=== PATIENT | male | born 1970 | race Two or more races ===

== ENCOUNTER 2017-07-15 00:15 | Inpatient (IN) | payer MEDICAID ==
[2017-07-15] VITALS (9 sets, daily range): BP systolic 127–156; BP diastolic 77–106
[~2017-07-15] VITALS: Ht 167.6 cm; Wt 69.4 kg
--- NOTE | 2017-07-15 00:23 | Emergency Room Report ---
History of Present Illness General Chief Complaint: To Be Triaged Source: Patient Present Illness HPI [id number] walkin with chief complaint of auditory hallucinations over 2 months, worse last 8 days Believes someone is following him, watching him at work, poisoning is food Smokes marijuana - probably every day More aggressive towards his , daughter Doesnt know the year Denies known psych history, known diagnoses, medications 40-50lb weight loss over 2 months Not eating No other medical problems Allergies: Coded Allergies: No Known Allergies (Unverified , 07/15/17) Patient History Past Surgical History: none Pertinent Family History: none Social History: Reports: smoking, drug use, Denies: alcohol use Immunizations: UTD Reviewed Nursing Documentation: PMH: Agreed, PSxH: Agreed Review of Systems All Other Systems: negative except mentioned in HPI Physical Exam Sp02 EP Interpretation: reviewed, normal General Appearance: normal inspection, well appearing, no apparent distress, alert, GCS 15, non-toxic Head: normocephalic, atraumatic Eyes: bilateral eye PERRL, bilateral eye EOMI ENT: normal ENT inspection, hearing grossly normal, normal voice Neck: normal inspection, full range of motion, supple, no bony tend Respiratory: normal inspection, lungs clear, normal breath sounds, no respiratory distress, no retraction, no wheezing Cardiovascular #1: regular rate, rhythm, no edema Gastrointestinal: normal inspection, normal bowel sounds, non tender, soft, no guarding, no hernia Genitourinary: no CVA tenderness Musculoskeletal: normal inspection, back normal, normal range of motion, Juanpablo' s Sign negative Neurologic: normal inspection, alert, oriented x3, responsive, 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 tested, motor strength/tone normal, speech normal Psychiatric: normal inspection, judgement/insight normal, mood/affect normal Skin: normal inspection, normal color, no rash Medical Decision Making Diagnostic Impression: Primary Impression: Altered mental status Qualified Codes: R41.82 - Altered mental status, unspecified Additional Impressions: Failure to thrive Qualified Codes: R62.7 - Adult failure to thrive Weight loss, unintentional Methamphetamine abuse Polysubstance abuse Behavior change due to substance use ER Course Labs unremarkable Utox + for meth, MJ Likely contributing to AMS and aggressive and paranoid behavior at home Also possibly contributing to decreased appetite weight loss Cannot rule out underlying psych condition however Endorsed to Dr Gonzalez for Dr Jesus at 250am for med/surg admission EKG Diagnostic Results Rate: normal Rhythm: NSR ST Segments: no acute changes ASA given to the pt in ED: No Rhythm Strip Diag. Results EP Interpretation: yes Rate: 75 Rhythm: NSR, no PVC's, no ectopy Chest X-Ray Diagnostic Results Chest X-Ray Diagnostic Results : Chest X-Ray Ordered: Yes # of Views/Limited/Complete: 1 View Indication: Other - AMS EP Interpretation: Yes Interpretation: no consolidation, no effusion, no pneumothorax, no acute cardiopulmonary disease Impression: No acute disease Electronically Signed by: Dr Evangelina Eisenberg MD Status: improved Disposition: ADMITTED INPATIENT Condition: Stable Scripts No Active Prescriptions or Reported EVANGELINA Callejas M.D. Jul 15, 2017 00:23
[2017-07-15] MEDS ORDERED: LORazepam Inj 2mg/ml 1ml IV ONE (00:45)
[2017-07-15] MEDS ORDERED: Tubing IV Cassette IV ONE (00:58)
[2017-07-15 01:02] LABS: BASOPHILS % (AUTO) 1.3 % (0.0-2.0); EOSINOPHILS % (AUTO) 1.8 % (0.0-3.0); LYMPHOCYTES % (AUTO) 25.8 % (20.0-45.0); MEAN CORPUSCULAR HEMOGLOBIN 34.1 PG (27.0-31.0); MEAN CORPUSCULAR HGB CONC 35.4 G/DL (32.0-36.0); MEAN CORPUSCULAR VOLUME 96 FL (80-99); MEAN PLATELET VOLUME 6.3 FL (6.5-10.1); MONOCYTES % (AUTO) 7.1 % (1.0-10.0); PLATELET COUNT 327 K/UL (150-450); RED BLOOD COUNT 4.86 M/UL (4.70-6.10); RED CELL DISTRIBUTION WIDTH 12.6 % (11.6-14.8); WHITE BLOOD COUNT 8.9 K/UL (4.8-10.8)
[2017-07-15 01:33] LABS: ALANINE AMINOTRANSFERASE 42 U/L (12-78); ANION GAP 12 mmol/L (5-15); ASPARTATE AMINO TRANSFERASE 25 U/L (15-37); CALCIUM 9.5 MG/DL (8.5-10.1); CARBON DIOXIDE 26 MMOL/L (21-32); CHLORIDE 102 MMOL/L (98-107); CREATININE 0.9 MG/DL (0.55-1.30); GLOMERULAR FILTRATION RATE > 60 mL/min (>60); POTASSIUM 3.7 MMOL/L (3.5-5.1); SODIUM 140 MMOL/L (136-145); TOTAL PROTEIN 7.6 G/DL (6.4-8.2)
[2017-07-15 01:34] LABS: ACETAMINOPHEN 4 MCG/ML (10-30); ALCOHOL < 3 mg/dL; THYROID STIMULATING HORMONE 1.575 uiU/mL (0.360-3.740)
[2017-07-15] MEDS ORDERED: Zolpidem 5mg tab ORAL PRN (03:15)
[2017-07-15] MEDS ORDERED: Mylanta II UD 30ml ORAL PRN (03:15)
[2017-07-15] MEDS ORDERED: Miralax 17gm pkt ORAL PRN (03:15)
[2017-07-15] MEDS ORDERED: Flu Vaccine Quadrivalent 0.5ml IM ONE (09:00)
[2017-07-15] MEDS: Docusate 100mg cap ORAL SCH ×2 (09:43→21:00)
[2017-07-15] MEDS: Heparin 5000 units/ml inj SUBQ SCH ×2 (09:45→21:00)
--- NOTE | 2017-07-15 12:13 | Diagnostic Imaging Report ---
Indication: Dyspnea Comparison: None A single view chest radiograph was obtained. Findings: Cardiomediastinal appearance is within normal limits for age. Pulmonary vascularity is appropriate. The diaphragmatic contour is smooth and costophrenic angles are sharp. No pleural effusions are identified. The bones are unremarkable. Impression: No acute findings
--- NOTE | 2017-07-15 15:23 | History and Physical ---
History of Present Illness General Date patient seen: Jul 15, 2017 Reason for Hospitalization: Behavioral Complaint Present Illness HPI 46 y/o male with no significant past medical history presents for auditory hallucinations for 2 months, which has worsened over the last 1 weeks. Patient states that he believes he is constantly being watched recently has been hearing voices. He believes that he developed a gift and that he can people talk about him even if they're miles away. Patient also states that he has been smoking marijuana since he was 15 years old and started abusing methamphetamines for the last 6 months. Per daughter, patient has been more aggressive towards . Patient also states that he has not been eating because he believes that someone has been poisoning his food. He reports a 40- 50 pound weight loss over the last 2 months since he's been having auditory hallucinations. Denies cp, sob, n/v, headaches. Denies any prior history of psychiatric illnesses. Denies SI/HI. Allergies: Coded Allergies: No Known Allergies (Unverified , 07/15/17) Medication History No Active Prescriptions or Reported Meds Patient History Limited by: language barrier History Provided By: Patient, Family Member Healthcare decision maker Resuscitation status Full Code Advanced Directive on File Review of Systems Constitutional: Reports: no symptoms Eye: Reports: no symptoms ENT: Reports: no symptoms Respiratory: Reports: no symptoms Cardiovascular: Reports: no symptoms Gastrointestinal: Reports: no symptoms Genitourinary: Reports: no symptoms Musculoskeletal: Reports: no symptoms Skin: Reports: no symptoms Psychiatric: Reports: see HPI - no SI/HI Neurological: Reports: no symptoms Endocrine: Reports: no symptoms Hematologic/Lymphatic: Reports: no symptoms Physical Exam General Appearance: no apparent distress, alert, other - paranoid affect HEENT: normocephalic, atraumatic Neck: non-tender, normal alignment, supple Respiratory/Chest: chest wall non-tender, lungs clear, normal breath sounds Cardiovascular/Chest: normal peripheral pulses, normal rate, regular rhythm Abdomen: normal bowel sounds, non tender, soft Extremities: normal range of motion, non-tender Skin Exam: normal pigmentation, warm/dry 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, no motor/sensory deficits, alert, oriented x 3 Last 24 Hour Vital Signs Date Time Temp Pulse Resp B/P (MAP) Pulse Ox O2 Delivery O2 Flow Rate FiO2 07/15/17 12:00 97.9 81 20 156/99 100 Room Air 07/15/17 08:00 98.2 86 20 147/106 100 Room Air 07/15/17 04:22 97.9 83 20 127/86 100 Room Air 07/15/17 03:18 98.8 79 15 136/92 98 Room Air 07/15/17 03:13 79 15 136/92 98 Room Air 07/15/17 01:52 98.8 81 18 130/79 97 Room Air 07/15/17 00:25 98.8 97 18 136/90 98 Room Air 07/15/17 00:20 98.8 97 18 136/90 98 Intake and Output 07/15/17 07/16/17 19:00 07:00 Intake Total 525 ml Balance 525 ml Intake IV Total 525 ml Laboratory Tests Test 07/15/17 00:55 07/15/17 01:30 White Blood Count 8.9 K/UL (4.8-10.8) Red Blood Count 4.86 M/UL (4.70-6.10) Hemoglobin 16.6 G/DL (14.2-18.0) Hematocrit 46.7 % (42.0-52.0) Mean Corpuscular Volume 96 FL (80-99) Mean Corpuscular Hemoglobin 34.1 PG (27.0-31.0) H Mean Corpuscular Hemoglobin Concent 35.4 G/DL (32.0-36.0) Red Cell Distribution Width 12.6 % (11.6-14.8) Platelet Count 327 K/UL (150-450) Mean Platelet Volume 6.3 FL (6.5-10.1) L Neutrophils (%) (Auto) 64.0 % (45.0-75.0) Lymphocytes (%) (Auto) 25.8 % (20.0-45.0) Monocytes (%) (Auto) 7.1 % (1.0-10.0) Eosinophils (%) (Auto) 1.8 % (0.0-3.0) Basophils (%) (Auto) 1.3 % (0.0-2.0) Sodium Level 140 MMOL/L (136-145) Potassium Level 3.7 MMOL/L (3.5-5.1) Chloride Level 102 MMOL/L (98-107) Carbon Dioxide Level 26 MMOL/L (21-32) Anion Gap 12 mmol/L (5-15) Blood Urea Nitrogen 19 mg/dL (7-18) H Creatinine 0.9 MG/DL (0.55-1.30) Estimat Glomerular Filtration Rate > 60 mL/min (>60) Glucose Level 137 MG/DL (74-106) H Calcium Level 9.5 MG/DL (8.5-10.1) Total Bilirubin 0.3 MG/DL (0.2-1.0) Aspartate Amino Transf (AST/SGOT) 25 U/L (15-37) Alanine Aminotransferase (ALT/SGPT) 42 U/L (12-78) Alkaline Phosphatase 103 U/L (46-116) Troponin I 0.003 ng/mL (0.000-0.056) Total Protein 7.6 G/DL (6.4-8.2) Albumin 3.8 G/DL (3.4-5.0) Globulin 3.8 g/dL Albumin/Globulin Ratio 1.0 (1.0-2.7) Thyroid Stimulating Hormone (TSH) 1.575 uiU/mL (0.360-3.740) Salicylates Level 3.2 ug/mL (2.8-20) Acetaminophen Level 4 MCG/ML (10-30) L Serum Alcohol < 3 mg/dL Urine Opiates Screen Negative (NEGATIVE) Urine Barbiturates Screen Negative (NEGATIVE) Phencyclidine (PCP) Screen Negative (NEGATIVE) Urine Amphetamines Screen Positive (NEGATIVE) H Urine Benzodiazepines Screen Negative (NEGATIVE) Urine Cocaine Screen Negative (NEGATIVE) Urine Marijuana (THC) Screen Positive (NEGATIVE) H Height (Feet): 5 Height (Inches): 6.00 Weight (Pounds): 153 Medications Current Medications Medications (Trade) Dose Ordered Sig/Eve Route PRN Reason Start Time Stop Time Status Last Admin Dose Admin Acetaminophen (Tylenol) 650 mg Q4H PRN ORAL Mild Pain (Pain Scale 1-3) 07/15/17 03:15 08/14/17 03:14 Al Hydroxide/Mg Hydroxide (Mylanta II) 30 ml Q6H PRN ORAL dyspepsia 07/15/17 03:15 08/14/17 03:14 Dextrose (Dextrose 50%) STAT PRN IV Hypoglycemia 07/15/17 03:15 08/14/17 03:14 Diphenhydramine HCl (Benadryl) 25 mg Q6H PRN ORAL Itching/Pruritis 07/15/17 03:15 08/14/17 03:14 Docusate Sodium (Colace) 100 mg EVERY 12 HOURS ORAL 07/15/17 09:00 08/14/17 08:59 07/15/17 09:43 Heparin Sodium (Porcine) (Heparin 5000 units/ml) 5,000 units EVERY 12 HOURS SUBQ 07/15/17 09:00 08/14/17 08:59 07/15/17 09:45 Lorazepam (Ativan) 1 mg Q4H PRN ORAL For Anxiety 07/15/17 03:15 07/22/17 03:14 Ondansetron HCl (Zofran) 4 mg Q6H PRN IVP Nausea & Vomiting 07/15/17 03:15 08/14/17 03:14 Polyethylene Glycol (Miralax) 17 gm HSPRN PRN ORAL Constipation 07/15/17 03:15 08/14/17 03:14 Sodium Chloride 1,000 ml @ 75 mls/hr [id number] IV 07/15/17 03:15 08/14/17 03:14 07/15/17 04:12 Zolpidem Tartrate (Ambien) 5 mg HSPRN PRN ORAL Insomnia 07/15/17 03:15 07/22/17 03:14 Assessment/Plan Problem List: (1) Failure to thrive in adult ICD Codes: R62.7 - Failure to thrive in adult SNOMED: 753185528 Qualifiers: Qualified Codes: R62.7 - Adult failure to thrive (2) Weight loss, unintentional ICD Codes: R63.4 - Abnormal weight loss SNOMED: 290336829 (3) Methamphetamine abuse ICD Codes: F15.10 - Other stimulant abuse, uncomplicated SNOMED: 601410982 (4) Polysubstance abuse ICD Codes: F19.10 - Other psychoactive substance abuse, uncomplicated SNOMED: 604905248 (5) Behavior change due to substance use ICD Codes: R46.89 - Other symptoms and signs involving appearance and behavior SNOMED: 943441310 (6) Auditory hallucination ICD Codes: R44.0 - Auditory hallucinations SNOMED: 79913252 Status: unchanged Assessment/Plan - Admit to inpatient - Ativan prn for agitation - Calorie count - IVF - DVT ppx - Central Control Room Operator consulted - Psychiatry consulted for psychiatric evaluation d/w pt, RN, family, client relationship consultant who understand and agree to plan of care. Marah Perkins N.P. Jul 15, 2017 15:23
[2017-07-15] MEDS: LORazepam 1mg tab ORAL PRN (16:52)
--- NOTE | 2017-07-15 21:44 | Consultation ---
History of Present Illness General Chief Complaint: Behavioral Complaint Present Illness HPI 46 y/o male with no significant past medical history presents for auditory hallucinations for the past several months, which has worsened over the last 1 weeks. Patient states that he believes he is constantly being watched recently has been hearing voices. He believes that he developed a gift and that he can people talk about him even if they're miles away. the pt has been using crystal meth for the past several months. the pt was anxious and does not believe he has a mental illness. Allergies: Coded Allergies: No Known Allergies (Unverified , 07/15/17) Medication History No Active Prescriptions or Reported Meds Patient History History Provided By: Patient, Medical Record, PMD Healthcare decision maker Resuscitation status Full Code Advanced Directive on File Past Medical/Surgical History Past Medical/Surgical History: (1) Altered mental status (2) Weight loss, unintentional (3) Methamphetamine abuse (4) Failure to thrive in adult (5) Polysubstance abuse (6) Behavior change due to substance use (7) Auditory hallucination Review of Systems Psychiatric: Reports: prior hx, anxiety, depressed feelings, emotional problems Physical Exam General Appearance: no apparent distress, alert, overweight Neurologic: alert, oriented x 3, responsive, depressed affect Last 24 Hour Vital Signs Date Time Temp Pulse Resp B/P (MAP) Pulse Ox O2 Delivery O2 Flow Rate FiO2 07/15/17 19:33 97.9 82 20 135/95 97 Room Air 07/15/17 16:16 98.2 84 20 128/77 99 Room Air 07/15/17 12:00 97.9 81 20 156/99 100 Room Air 07/15/17 08:00 98.2 86 20 147/106 100 Room Air 07/15/17 04:22 97.9 83 20 127/86 100 Room Air 07/15/17 03:18 98.8 79 15 136/92 98 Room Air 07/15/17 03:13 79 15 136/92 98 Room Air 07/15/17 01:52 98.8 81 18 130/79 97 Room Air 07/15/17 00:25 98.8 97 18 136/90 98 Room Air 07/15/17 00:20 98.8 97 18 136/90 98 Intake and Output 07/15/17 07/16/17 19:00 07:00 Intake Total 1005 ml Balance 1005 ml Intake Oral 480 ml IV Total 525 ml # Voids 2 Laboratory Tests Test 07/15/17 00:55 07/15/17 01:30 White Blood Count 8.9 K/UL (4.8-10.8) Red Blood Count 4.86 M/UL (4.70-6.10) Hemoglobin 16.6 G/DL (14.2-18.0) Hematocrit 46.7 % (42.0-52.0) Mean Corpuscular Volume 96 FL (80-99) Mean Corpuscular Hemoglobin 34.1 PG (27.0-31.0) H Mean Corpuscular Hemoglobin Concent 35.4 G/DL (32.0-36.0) Red Cell Distribution Width 12.6 % (11.6-14.8) Platelet Count 327 K/UL (150-450) Mean Platelet Volume 6.3 FL (6.5-10.1) L Neutrophils (%) (Auto) 64.0 % (45.0-75.0) Lymphocytes (%) (Auto) 25.8 % (20.0-45.0) Monocytes (%) (Auto) 7.1 % (1.0-10.0) Eosinophils (%) (Auto) 1.8 % (0.0-3.0) Basophils (%) (Auto) 1.3 % (0.0-2.0) Sodium Level 140 MMOL/L (136-145) Potassium Level 3.7 MMOL/L (3.5-5.1) Chloride Level 102 MMOL/L (98-107) Carbon Dioxide Level 26 MMOL/L (21-32) Anion Gap 12 mmol/L (5-15) Blood Urea Nitrogen 19 mg/dL (7-18) H Creatinine 0.9 MG/DL (0.55-1.30) Estimat Glomerular Filtration Rate > 60 mL/min (>60) Glucose Level 137 MG/DL (74-106) H Calcium Level 9.5 MG/DL (8.5-10.1) Total Bilirubin 0.3 MG/DL (0.2-1.0) Aspartate Amino Transf (AST/SGOT) 25 U/L (15-37) Alanine Aminotransferase (ALT/SGPT) 42 U/L (12-78) Alkaline Phosphatase 103 U/L (46-116) Troponin I 0.003 ng/mL (0.000-0.056) Total Protein 7.6 G/DL (6.4-8.2) Albumin 3.8 G/DL (3.4-5.0) Globulin 3.8 g/dL Albumin/Globulin Ratio 1.0 (1.0-2.7) Thyroid Stimulating Hormone (TSH) 1.575 uiU/mL (0.360-3.740) Salicylates Level 3.2 ug/mL (2.8-20) Acetaminophen Level 4 MCG/ML (10-30) L Serum Alcohol < 3 mg/dL Urine Opiates Screen Negative (NEGATIVE) Urine Barbiturates Screen Negative (NEGATIVE) Phencyclidine (PCP) Screen Negative (NEGATIVE) Urine Amphetamines Screen Positive (NEGATIVE) H Urine Benzodiazepines Screen Negative (NEGATIVE) Urine Cocaine Screen Negative (NEGATIVE) Urine Marijuana (THC) Screen Positive (NEGATIVE) H Height (Feet): 5 Height (Inches): 6.00 Weight (Pounds): 153 Medications Current Medications Medications (Trade) Dose Ordered Sig/Eve Route PRN Reason Start Time Stop Time Status Last Admin Dose Admin Acetaminophen (Tylenol) 650 mg Q4H PRN ORAL Mild Pain (Pain Scale 1-3) 07/15/17 03:15 08/14/17 03:14 Al Hydroxide/Mg Hydroxide (Mylanta II) 30 ml Q6H PRN ORAL dyspepsia 07/15/17 03:15 08/14/17 03:14 Dextrose (Dextrose 50%) STAT PRN IV Hypoglycemia 07/15/17 03:15 08/14/17 03:14 Diphenhydramine HCl (Benadryl) 25 mg Q6H PRN ORAL Itching/Pruritis 07/15/17 03:15 08/14/17 03:14 Docusate Sodium (Colace) 100 mg EVERY 12 HOURS ORAL 07/15/17 09:00 08/14/17 08:59 07/15/17 09:43 Heparin Sodium (Porcine) (Heparin 5000 units/ml) 5,000 units EVERY 12 HOURS SUBQ 07/15/17 09:00 08/14/17 08:59 07/15/17 09:45 Lorazepam (Ativan) 1 mg Q4H PRN ORAL For Anxiety 07/15/17 03:15 07/22/17 03:14 07/15/17 16:52 Ondansetron HCl (Zofran) 4 mg Q6H PRN IVP Nausea & Vomiting 07/15/17 03:15 08/14/17 03:14 Polyethylene Glycol (Miralax) 17 gm HSPRN PRN ORAL Constipation 07/15/17 03:15 08/14/17 03:14 Risperidone (RisperDAL) 2 mg BEDTIME ORAL 07/15/17 21:00 08/14/17 20:59 07/15/17 21:08 Sodium Chloride 1,000 ml @ 75 mls/hr [id number] IV 07/15/17 03:15 08/14/17 03:14 07/15/17 16:47 Zolpidem Tartrate (Ambien) 5 mg HSPRN PRN ORAL Insomnia 07/15/17 03:15 07/22/17 03:14 Assessment/Plan Status: stable Assessment/Plan substance induced psychosis crystal meth use risperdal 2mg qhs d/w daughter haldol dec 50mg dc when medically cleared Brenda Mitchell M.D. Jul 15, 2017 21:44
[2017-07-15] MEDS ORDERED: Haloperidol Decanoate 50mg Inj IM ONE (21:45)
[2017-07-16 04:00] VITALS: BP 113/69
[2017-07-16 04:01] VITALS: BP 133/81
[2017-07-16 08:17] VITALS: BP 124/77
[2017-07-16] MEDS ORDERED: Haloperidol Decanoate 50mg Inj IM ONE (09:00)
[2017-07-16] MEDS: Heparin 5000 units/ml inj SUBQ SCH (09:38)
[2017-07-16] MEDS: Docusate 100mg cap ORAL SCH (10:46)
[2017-07-16 12:00] VITALS: BP 120/75
[2017-07-16] MEDS ORDERED: RISPERDAL2 MG ORAL (15:30)
--- NOTE | 2017-07-16 15:31 | Discharge Summary ---
Discharge Summary Hospital Course Date of Admission Jul 15, 2017 at 00:56 Date of Discharge 07/17/17 Admitting Diagnosis FAILURE TO THRIVE Reason for Hospitalization: Failure to thrive, psychosis HPI 46 y/o male with no significant past medical history presents for auditory hallucinations for 2 months, which has worsened over the last 1 weeks. Patient states that he believes he is constantly being watched recently has been hearing voices. He believes that he developed a gift and that he can people talk about him even if they're miles away. Patient also states that he has been smoking marijuana since he was 15 years old and started abusing methamphetamines for the last 6 months. Per daughter, patient has been more aggressive towards . Patient also states that he has not been eating because he believes that someone has been poisoning his food. He reports a 40- 50 pound weight loss over the last 2 months since he's been having auditory hallucinations. Denies cp, sob, n/v, headaches. Denies any prior history of psychiatric illnesses. Denies SI/HI. Consultations Psychiatry Hospital Course Pt was admitted and seen by psych who started patient on antipsychotic medications with improvement. Psychosis likely 2/2 methamphetamine abuse. Pt was counseled extensively on methamphetamine cessation. Discharge Medications New Medications: Risperidone* (Risperdal*) 2 Mg Tablet 2 MG ORAL BEDTIME for 30 Days, TAB 1 Refill Discharge Condition Upon Discharge: stable Discharge Disposition Patient was discharged to home Discharge Diagnoses: (1) Failure to thrive in adult (2) Substance-induced psychotic disorder (3) Methamphetamine abuse Carlos Garcia M.D. Jul 16, 2017 15:31
[2017-07-16] MEDS: LORazepam 1mg tab ORAL PRN (16:10)
--- NOTE | 2017-07-16 22:41 | General Progress Note ---
Assessment/Plan Status: stable Assessment/Plan crystal meth use psychosis risperdal 2mg qhs dc when cleared med Subjective Neurologic/Psychiatric: Reports: anxiety, depressed, emotional problems Allergies: Coded Allergies: No Known Allergies (Unverified , 07/15/17) Objective Last 24 Hour Vital Signs Date Time Temp Pulse Resp B/P (MAP) Pulse Ox O2 Delivery O2 Flow Rate FiO2 07/16/17 12:00 98.0 85 20 120/75 96 Room Air 07/16/17 08:17 98.2 86 20 124/77 96 Room Air 07/16/17 04:01 98.1 82 20 133/81 98 Room Air 07/16/17 04:00 98.1 70 20 113/69 97 Room Air 07/15/17 23:25 97.9 82 20 135/88 98 Room Air Height (Feet): 5 Height (Inches): 6.00 Weight (Pounds): 153 General Appearance: no apparent distress, alert, overweight Neurologic: alert, oriented x 3, responsive, depressed affect Brenda Mitchell M.D. Jul 16, 2017 22:41
--- NOTE | 2017-07-25 16:23 | Cardiology Report ---
APPROVED REPORT EKG Measurement Heart [id number] HI [id number] [id number] Normal sinus rhythm Normal ECG
== END 2017-07-16 16:30 | disposition home or self-care (01) | DRG 776 ==
LOC: EMR 00:53 → 4E 00:56 → EDBEDREQ 01:22 → 4E 02:36
DX: F15.151 Other stimulant abuse with stimulant-induced psychotic disorder with hallucinations (principal); R62.7 Adult failure to thrive; R63.4 Abnormal weight loss; Z68.24 Body mass index [BMI] 24.0-24.9, adult; F19.188 Other psychoactive substance abuse with other psychoactive substance-induced disorder
CPT/HCPCS: 36415; 71010; 80053; 80307; 80329; 82962; 84443; 84484; 85025; 90630; 93005; 99285

== ENCOUNTER 2017-10-23 17:43 | Emergency (ER) | payer SELFPAY ==
[~2017-10-23] VITALS: Ht 160 cm; Wt 70.8 kg
[~2017-10-23 17:43] MED LIST: RISPERDAL2 MG ORAL
[2017-10-23 18:12] VITALS: BP 127/85
[2017-10-23] MEDS ORDERED: IBUPROFEN600 MG ORAL (18:30)
[2017-10-23] MEDS ORDERED: RISPERDAL2 MG ORAL (18:30)
--- NOTE | 2017-10-23 18:31 | Emergency Room Report ---
History of Present Illness General Chief Complaint: Headache Source: Patient, Medical Record Present Illness HPI 47 yo male presents to ER for intermittent LACKEY for 15 days; patient BIB daughter. Patient denies vision changes, loss of vision, heading loss, ringing in ears. Denies worst LACKEY of life. Denies cough, recent illness, hx of sick contacts. Reports using Tylenol with mild relief of symptoms. Reports history of smoking marijuana; daughter states patient smokes everyday; states he longer uses other drugs. Denies hx of trauma or injury to head. Denies sinus congestion, denies rhinorrhea. Patient also requesting refill of psychiatric medication Risperidone. Patient previously seen in ER for auditory hallucinations; daughter states followup appointment with mental health is next week. Daughter reports observing patient talking to himself. Patient denies fever, chest pain, SOB, abdominal pain. Allergies: Coded Allergies: No Known Allergies (Unverified , 07/15/17) Patient History Past Medical History: see triage record Social History: Reports: smoking, alcohol use Reviewed Nursing Documentation: PMH: Agreed, PSxH: Agreed Nursing Documentation-PMH Past Medical History: No History, Except For Hx Cardiac Problems: No Hx Cancer: No Hx Gastrointestinal Problems: No Hx Neurological Problems: No Review of Systems All Other Systems: negative except mentioned in HPI Physical Exam Vital Signs Date Time Temp Pulse Resp B/P (MAP) Pulse Ox O2 Delivery O2 Flow Rate FiO2 10/23/17 17:48 98.3 86 18 127/85 98 Room Air 98.2 Sp02 EP Interpretation: reviewed, normal General Appearance: well appearing, no apparent distress, alert, GCS 15, non- toxic Head: normocephalic, atraumatic, other - no TTP, negative Shepherd sign, negative Raccoon sign Eyes: bilateral eye normal inspection, bilateral eye PERRL, bilateral eye EOMI ENT: hearing grossly normal, normal pharynx, normal voice, TMs + canals normal , uvula midline, moist mucus membranes Neck: normal inspection, full range of motion, no bony tend Respiratory: normal inspection, lungs clear, normal breath sounds, no rhonchi, no respiratory distress, no retraction, no accessory muscle use, no wheezing, speaking full sentences Cardiovascular #1: regular rate, rhythm, no gallop, no murmur, no rub Gastrointestinal: normal bowel sounds, non tender, soft, no mass, no organomegaly, non-distended, no guarding, no rebound Musculoskeletal: back normal, digits/nails normal, gait/station normal, normal range of motion, no calf tenderness Neurologic: alert, oriented x3, responsive, electronic science teacher III-XII nml as tested, motor strength/tone normal, normal gait Psychiatric: mood/affect normal Skin: normal color, no rash, warm/dry Lymphatic: no adenopathy Medical Decision Making PA Attestation Dr. Dunn is my supervising Physician whom patient management has been discussed with. Diagnostic Impression: Primary Impression: Headache Additional Impressions: Marijuana use Auditory hallucination ER Course Patient presents to ER complaining of LACKEY. Patient also requesting medication refill. Vitals signs are WNL, patient is afebrile. Daughter reports recent marijuana use by patient. DDx considered include but are not limited to cluster LACKEY, sinus LACKEY, tension LACKEY, migraine LACKEY, arrhythmia. Physical exam is benign, patient does not require imaging at this time. EKG ordered. No ST elevations, no arrhythmias. Patient is resting comfortably, in no acute distress, nontoxic appearing, smiling, able to answer questions. Patient smells of marijuana. Rx provided for Risperidone. Patient provided with medication but instructed will need further prescription at followup appointment with mental health. Patient and patient daughter's report understanding and agreement to treatment plan. Rx provided for Motrin for patients headaches. At this time pt. is stable for d/c to home. Will provide printed patient care instructions, and any necessary prescriptions. Patient instructed to follow with primary care provider for further treatment and referral as needed. Care plan and follow up instructions have been discussed with the patient prior to discharge. Patient reports understanding and agreement to treatment plan. Patient questions asked and answered. ER precautions given, patient instructed to return to ER immediately for any new or worsening of symptoms. EKG Diagnostic Results Rate: normal Rhythm: NSR ST Segments: no acute changes ASA given to the pt in ED: No PA Scribe Text Rui Cohen PA-C Rhythm Strip Diag. Results EP Interpretation: yes Rhythm: NSR, no PVC's, no ectopy PA Scribe Text Rui Cohen PA-C Last Vital Signs Date Time Temp Pulse Resp B/P (MAP) Pulse Ox O2 Delivery O2 Flow Rate FiO2 10/23/17 18:12 98.2 18 127/85 98 Room Air 98.2 10/23/17 17:48 86 Disposition: HOME, SELF-CARE Condition: Stable Scripts Risperidone* (RISPERDAL*) 2 Mg Tablet 2 MG ORAL BEDTIME, #15 TAB 0 Refills Prov: Charles Cohen 10/23/17 Ibuprofen* (MOTRIN*) 600 Mg Tablet 600 MG ORAL Q8H Y for For Pain, #30 TAB 0 Refills Prov: Charles Cohen 10/23/17 Patient Instructions: General Headache Without Cause, Risperidone tablets Additional Instructions: Followup with primary care provider in 3 -5 days. Followup with mental health provider at appointment. Do not do drugs. Take medications as directed. Patient questions asked and answered. ER precautions given, patient instructed to return to ER immediately for any new or worsening of symptoms. Charles Cohen Oct 23, 2017 18:31
[2017-10-23 19:01] VITALS: BP 127/85
--- NOTE | 2017-10-26 15:25 | Cardiology Report ---
APPROVED REPORT EKG Measurement Heart [id number] Normal sinus rhythm Normal ECG
== END 2017-10-23 19:03 | disposition home or self-care (01) ==
LOC: EMR 18:30
DX: R51 Headache (principal); F12.90 Cannabis use, unspecified, uncomplicated; R44.0 Auditory hallucinations
CPT/HCPCS: 93005; 99284